=== PATIENT | female | born 1955 | race Caucasian/White ===

== ENCOUNTER 2022-11-12 09:11 | Emergency (ER) | payer MEDICARE, BC ==
[2022-11-12 09:31] LABS: APPEARANCE,URINE TURBID (CLEAR); BILIRUBIN,URINE SMALL (NEGATIVE); COLOR,URINE YELLOW; GLUCOSE,URINE NEGATIVE (NEGATIVE); KETONES,URINE TRACE mg/dL (NEGATIVE); LEUKOCYTE ESTERASE,URINE SMALL (NEGATIVE); NITRITE,URINE POSITIVE (NEGATIVE); OCCULT BLOOD,URINE LARGE (NEGATIVE); PROTEIN,URINE >=300 mg/dL (NEGATIVE)
[2022-11-12 09:35] LABS: RBC,URINE 30-40 /HPF; SQUAMOUS EPITHELIAL CELLS,UR FEW /HPF; WBC CLUMPS,URINE MODERATE /HPF; WBC,URINE >100 /HPF
[2022-11-12 09:36] LABS: BACTERIA,URINE FEW /HPF
[2022-11-12] MEDS ORDERED: Sulfamethoxazole/Trimethoprim 800-160 MG Tab ONE (10:00)
== END 2022-11-12 10:10 | disposition home or self-care (01) ==
LOC: LB.ED 09:11
DX: N39.0 Urinary tract infection, site not specified (principal)
CPT/HCPCS: 81001; 87086; 99283; A9270-GY